=== PATIENT | male | born 1990 | race Caucasian/White ===

== ENCOUNTER 2017-07-22 21:23 | Emergency (ER) | payer BC ==
[2017-07-22 21:36] VITALS: BP 152/101
[2017-07-22] MEDS ORDERED: Lidocaine 1% INJ* 10 MG/ML 30 ML SDV INJ ONE (21:44)
[2017-07-22] MEDS ORDERED: Lidocaine 2% PF * 5 ML VIAL INJ ONE (21:50)
[2017-07-22] MEDS ORDERED: Lidocaine 1% MPF* 2 ML VIAL INJ ONE (21:51)
--- NOTE | 2017-07-22 22:18 | UC ---
Upper Extremity HPI - HPI Summary HPI Summary: 27 y/o male with no PMH, no medications, cut L thumb while cutting bagel tonight , clean knife, no contamination. + bleeding, controlled. mild pain, full ROM, sensation. no prior sutures. tetanus shot within 2 years. - History of Current Complaint Chief Complaint: UCLaceration Stated Complaint: HAND LACERATION Time Seen by Provider: 07/22/17 21:39 Hx Obtained From: Patient ?: No Onset/Duration: Sudden Onset Severity Initially: Moderate Severity Currently: Moderate Pain Intensity: 3 Pain Scale Used: 0-10 Numeric - Allergies/Home Medications Allergies/Adverse Reactions: Allergies Allergy/AdvReac Type Severity Reaction Status Date / Time amoxicillin [From Augmentin] Allergy Rash Verified 07/22/17 21:37 clavulanic acid Allergy Rash Verified 07/22/17 21:37 [From Augmentin] PMH/Surg Hx/FS Hx/Imm Hx Previously Healthy: Yes - Surgical History Surgical History: None - Family History Family History: NON CONTRIBUTORY - Social History Alcohol Use: Daily Substance Use Type: None Smoking Status (MU): Never Smoked Tobacco Type: Smokeless Tobacco Amount Used/How Often: 1/4 tin/day Review of Systems Constitutional: Negative Skin: Negative Eyes: Negative ENT: Negative Respiratory: Negative Motor: Negative Neurovascular: Negative Musculoskeletal: Negative Neurological: Negative Is Patient Immunocompromised?: No All Other Systems Reviewed And Are Negative: Yes Physical Exam Triage Information Reviewed: Yes Appearance: Well-Appearing, No Pain Distress, Well-Nourished Vital Signs: Initial Vital Signs Temp 98.6 F 07/22/17 21:31 Pulse 97 07/22/17 21:31 Resp 16 07/22/17 21:31 BP 152/101 07/22/17 21:31 Pulse Ox 99 07/22/17 21:31 Musculoskeletal: Positive: Strength Intact, ROM Intact, No Edema Neurological Exam: Normal Neurological: Positive: Alert, Muscle Tone Normal - L thumb Psychological Exam: Normal Skin: Positive: Other - laceration to base of thumb approximately 2cm x 0.5cm x 3mm depth, clean edges, + bleeding, controlled. Procedures - Laceration/Wound Repair 1 Location: upper extremity - L thumb base Description: Linear Anesthesia: Local, 2.0%, Lido Length, Depth and Shape: 2cm x 5mm x 3mm Laceration/Wound Explored: clean Closure: Single Layer Suture Type: Nylon Number of Sutures: 2 Layer Closure?: No Sterile Dressing Applied?: Yes Upper Extremity Course/Dx - Course Course Of Treatment: L thumb laceration repair, no complications - Differential Dx/Diagnosis Provider Diagnoses: L thumb laceration Discharge - Sign-Out/Discharge Documenting (check all that apply): Discharge - Discharge Plan Condition: Good Disposition: HOME Patient Education Materials: Care For Your Stitches (ED), Finger Laceration (ED ) Referrals: Chao Almaraz MD [Primary Care Provider] - Additional Instructions: - FOllow up at urgent care or with your primary physician armida 7-10 days for removal of sutures - keep area dry for 48 hours, OK to wash after that, no submerging/ swimming - Return for redness, tenderness, increased pain - Keep hand elevated to prevent swelling - Billing Disposition and Condition Condition: GOOD Disposition: HOME
== END 2017-07-22 22:17 | disposition home or self-care (01) ==
LOC: UCEAST 21:23
DX: S61.012A Laceration without foreign body of left thumb without damage to nail, initial encounter (principal); W26.0XXA Contact with knife, initial encounter; Y93.G1 Activity, food preparation and clean up; Y92.9 Unspecified place or not applicable; Z88.1 Allergy status to other antibiotic agents; Z88.0 Allergy status to penicillin; F17.220 Nicotine dependence, chewing tobacco, uncomplicated
CPT/HCPCS: 12001; 12002; 99211; G0463